=== PATIENT | female | born 1995 | race Caucasian/White ===

== ENCOUNTER 2017-01-04 00:52 | Emergency (ER) | payer SELFPAY ==
[2017-01-04 01:11] VITALS: O2SAT 98
[2017-01-04] MEDS ORDERED: Sodium Chloride 0.9% 1,000 ML IV ONE (01:12)
--- NOTE | 2017-01-04 01:24 | C.PDOC ---
History Of Present Illness Patient is a 21 y/o female, whose PMHx includes asthma, presents to the ED for evaluation of sharp and constant upper abdominal pain that began 3 hours ago. Patient reports associated nausea, and 2 episodes of diarrhea. Patient notes taking 3 new dietary pills as well as eating turkey burger with fries at a restaurant, shortly after the pain started. Otherwise, denies any urinary symptoms, fever, or any other associated symptoms at this time. LMP: 12/19/16 Time Seen by Provider: 01/04/17 01:06 Chief Complaint (Nursing): Abdominal Pain History Per: Patient History/Exam Limitations: no limitations Onset/Duration Of Symptoms: Hrs (3 hours ago), Persistent Current Symptoms Are (Timing): Still Present Radiation Of Pain To:: None Quality Of Discomfort: Sharp Associated Symptoms: Nausea, Diarrhea. denies: Fever, Chills, Vomiting, Loss Of Appetite, Back Pain, Chest Pain, Constipation, Urinary Symptoms Exacerbating Factors: None Alleviating Factors: None Last Bowel Movement: Today Recent travel outside of the [place]: No Additional History Per: Patient Abnormal Vaginal Bleeding: No Last Menstral Period: 12/19/16 Past Medical History Reviewed: Historical Data, Nursing Documentation, Vital Signs Vital Signs: Last Vital Signs Temp 98.4 F 01/04/17 01:00 Pulse 86 01/04/17 01:00 Resp 16 01/04/17 01:00 BP 121/77 01/04/17 01:00 Pulse Ox 98 01/04/17 01:39 - Medical History PMH: Asthma Surgical History: No Surg Hx - [facility] Procedures CLOSURE SKIN & SUBCUTANEOUS NEC (01/17/13) Family History: States: Unknown Family Hx - Social History Hx Tobacco Use: No Hx Alcohol Use: Yes Hx Substance Use: No - Immunization History Hx Tetanus Toxoid Vaccination: No Hx Influenza Vaccination: No Hx Pneumococcal Vaccination: No Review Of Systems Except As Marked, All Systems Reviewed And Found Negative. Constitutional: Negative for: Fever, Chills Gastrointestinal: Positive for: Nausea, Abdominal Pain, Diarrhea. Negative for : Vomiting, Constipation Genitourinary: Negative for: Dysuria, Frequency, Incontinence, Hematuria Musculoskeletal: Negative for: Back Pain Physical Exam - Physical Exam Appears: Non-toxic, No Acute Distress Skin: Normal Color, Warm, Dry Head: Atraumatic, Normacephalic Eye(s): bilateral: Normal Inspection Nose: Normal Neck: Normal ROM, Supple Chest: Symmetrical Cardiovascular: Rhythm Regular, No Murmur Respiratory: Normal Breath Sounds, No Accessory Muscle Use, No Rales, No Rhonchi , No Wheezing Gastrointestinal/Abdominal: Bowel Sounds (active), Soft, Tenderness (epigastric) , No Mass, No Distention, No Guarding, No Rebound, No Hernia Extremity: Normal ROM Neurological/Psych: Oriented x3, Normal Speech Gait: Steady ED Course And Treatment - Laboratory Results Result Diagrams: 01/04/17 01:37 01/04/17 01:37 Lab Interpretation: No Acute Changes O2 Sat by Pulse Oximetry: 98 (on RA) Pulse Ox Interpretation: Normal Progress Note: Blood work, urinalysis ordered and reviewed. Patient was given IV fluids, Pepcid, Zofran, and Toradol. Reevaluation Time: 02:10 Reassessment Condition: Improved (Patient resting comfortably in bed and reports abdominal pain has resolved. Abdomen remains soft and no guarding. She feels comfortable going home and will be discharged) Disposition Counseled Patient/Family Regarding: Studies Performed, Diagnosis, Need For Followup - Disposition Referrals: [facility] [Outside] [facility] [Outside] Disposition: HOME/ ROUTINE Disposition Time: 02:20 Condition: IMPROVED Additional Instructions: Take over the counter pepcid for any abdominal pain you may have. Your lab work was normal. Follow up with your primary medical doctor or clinic in 2-5 days for further evaluation. Return to the emergency department at any time if symptoms persist or worsen. Instructions: Acute Abdominal Pain (DC) - POA Present On Arrival: None - Clinical Impression Clinical Impression: Epigastric abdominal pain, Dyspepsia - PA / BUDGET AND POLICY ANALYST / Resident Statement MD/DO has reviewed & agrees with the documentation as recorded. - Scribe Statement The provider has reviewed the documentation as recorded by the Efe Tan All medical record entries made by the Bayleeibjeyson were at my direction and personally dictated by me. I have reviewed the chart and agree that the record accurately reflects my personal performance of the history, physical exam, medical decision making, and the department course for this patient. I have also personally directed, reviewed, and agree with the discharge instructions and disposition.
[2017-01-04 01:39] LABS: BASO # 0.1 K/uL (0.0-0.2); BASO % 0.5 % (0.0-2.0); EOS # 0.1 K/uL (0.0-0.7); EOS % 1.3 % (0.0-4.0); HEMOGLOBIN 13.9 g/dL (11.0-16.0); LYMPH # 2.1 K/uL (1.0-4.3); LYMPH % 21.8 % (20.0-40.0); MEAN CELL VOLUME 89.3 fL (81.0-99.0); MEAN CORPUSCULAR HEMOGLOBIN 29.5 pg (27.0-31.0); MEAN PLATELET VOLUME 7.5 fL (7.2-11.7); MONO # 0.9 K/uL (0.0-0.8); MONO % 9.4 % (0.0-10.0); NEUT # 6.4 K/uL (1.8-7.0); RBC 4.71 Mil/uL (3.80-5.20); RED CELL DISTRIBUTION WIDTH 13.3 % (11.5-14.5); WHITE BLOOD COUNT 9.5 K/uL (4.8-10.8)
[2017-01-04 01:49] LABS: ALBUMIN 3.9 g/dL (3.5-5.0)
[2017-01-04 01:52] LABS: GFR AFRICAN-AMERICAN > 60; GFR NON-AFRICAN AMERICAN > 60
[2017-01-04 01:53] LABS: ALB/GLOB RATIO 1.2 (1.0-2.1); ALT/SGPT 32 U/L (9-52); AST/SGOT 22 U/L (14-36); BLOOD UREA NITROGEN 13 mg/dL (7-17); CALCIUM 9.4 mg/dl (8.6-10.4); LIPASE 49 U/L (23-300)
[2017-01-04 02:38] VITALS: BP 94/68; PULSE 80; RESP 18; TEMP 97.8
== END 2017-01-04 02:38 | disposition home or self-care (01) ==
LOC: C.ER 00:52
DX: R10.13 Epigastric pain (principal)
CPT/HCPCS: 80053; 83690; 85025; 96374; 96375; 99284; J1885; J2405; J7040